=== PATIENT | female | born 1995 | race Asian ===

== ENCOUNTER 2017-03-08 13:47 | Emergency (ER) | payer OTHER ==
[~2017-03-08] VITALS: Ht 167.6 cm; Wt 78.2 kg
[~2017-03-08 13:47] MED LIST: ALL DAY ALLERGY10 M3 PO; AMITRIPTYLINE H10 MG PO; ATARAX,VISTARIL25 MG PO; AZITHROMYCIN250 MG1 PO; DICLOFENAC SODI75 MG PO; EPIPEN ADU0.3 MG/0.3 IM; EXCEDRIN EXTRA1 EACH PO; INDOCIN50 MG PO; NAPROXEN500 MG PO; ORTHO TRI-CY1 TABLE1 PO; PREDNISONE20 MG PO; TRAMADOL HCL50 MG PO; ZANTAC300 MG PO
[2017-03-08 15:59] VITALS: BP 120/70
== END 2017-03-08 16:00 | disposition home or self-care (01) ==
LOC: EME 13:47
DX: O26.891 Other specified pregnancy related conditions, first trimester (principal); G43.909 Migraine, unspecified, not intractable, without status migrainosus; Z3A.12 12 weeks gestation of pregnancy; O99.331 Smoking (tobacco) complicating pregnancy, first trimester
CPT/HCPCS: 99281; 99284

== ENCOUNTER 2017-03-31 00:09 | Emergency (ER) | payer OTHER ==
[~2017-03-31] VITALS: Ht 167.6 cm; Wt 81.2 kg
[2017-03-31 00:27] VITALS: BP 129/71
== END 2017-03-31 02:11 | disposition home or self-care (01) ==
LOC: EME 00:09
DX: O26.892 Other specified pregnancy related conditions, second trimester (principal); M54.31 Sciatica, right side; Z3A.15 15 weeks gestation of pregnancy
CPT/HCPCS: 99281; 99284

== ENCOUNTER 2017-04-20 02:06 | Emergency (ER) | payer OTHER ==
[~2017-04-20] VITALS: Ht 167.6 cm; Wt 81.5 kg
[2017-04-20 04:06] VITALS: BP 122/71
== END 2017-04-20 04:06 | disposition home or self-care (01) ==
LOC: EME 02:06
DX: O99.342 Other mental disorders complicating pregnancy, second trimester (principal); F41.0 Panic disorder [episodic paroxysmal anxiety]; F41.9 Anxiety disorder, unspecified; T43.506A Underdosing of unspecified antipsychotics and neuroleptics, initial encounter; Z91.128 Patient's intentional underdosing of medication regimen for other reason; Z3A.18 18 weeks gestation of pregnancy
CPT/HCPCS: 90839; 99281; 99284

== ENCOUNTER 2017-05-16 15:35 | Outpatient (CLI) | payer OTHER ==
[2017-05-16 15:53] VITALS: BP 127/61
== END 2017-05-16 16:40 | disposition home or self-care (01) ==
LOC: LDRP-OP → 2WEST 15:36 → LDRP-OP 10-18 13:21
DX: O36.8120 Decreased fetal movements, second trimester, not applicable or unspecified (principal); Z3A.22 22 weeks gestation of pregnancy
CPT/HCPCS: 59025; G0378

== ENCOUNTER 2017-05-25 02:06 | Emergency (ER) | payer OTHER ==
[~2017-05-25] VITALS: Ht 170.2 cm; Wt 85.8 kg
[2017-05-25 03:28] LABS: ADD MIUA? YES; BILIRUBIN NEGATIVE; BLOOD NEGATIVE; COLOR YELLOW ((YELLOW)); GLUCOSE (STRIP) 150; KETONES NEGATIVE; LEUKOCYTES LARGE; NITRITE POSITIVE; PROTEIN (STRIP) 30; SPECIFIC GRAVITY 1.015 (1.000-1.030); UROBILINOGEN 0.2 MG/DL (0.2-1.0)
[2017-05-25 03:35] LABS: HEMATOCRIT 32.3 % (36.0-46.0); MCH 29.8 PG (29.0-34.0); MCHC 33.7 G/DL (30.0-36.0); MCV 88.3 FL (83-99); PLATELET COUNT 223 K/uL (156-360); RBC DIS.WIDTH-CV 12.4 % (11.8-14.6); RBC DIS.WIDTH-SD 40.2 % (39-53); RED BLOOD COUNT 3.66 M/uL (3.80-5.20); WHITE BLOOD COUNT 12.8 K/uL (4.1-10.2)
[2017-05-25 03:58] LABS: MUCUS 1+ /LPF; RED BLOOD CELLS NONE SEEN /HPF (0-5); WHITE BLOOD CELLS 20-30 /HPF (0-5)
[2017-05-25 03:59] LABS: BACTERIA 3+ /HPF; EPITHELIAL CELLS 2+ /HPF; UCUL ADDED? YES
[2017-05-25 04:00] LABS: INTERNAL CONTROL VALID? YES; MONOSPOT (MONONUCLEOSIS SEROL) NEGATIVE
[2017-05-25 04:06] LABS: INFLUENZA A VIRAL ANTIGEN NEGATIVE; INFLUENZA B VIRAL ANTIGEN NEGATIVE
[2017-05-25 04:10] LABS: CHLORIDE 100 mEq/L (99-109); POTASSIUM 3.6 mEq/L (3.7-5.4); SODIUM 133 mEq/L (136-147)
[2017-05-25 04:12] LABS: GLUCOSE 96 mg/dL (70-99)
[2017-05-25 04:13] LABS: ANION GAP 11 MEQ/L (2-14)
[2017-05-25] MEDS ORDERED: MACROBID100 MG PO (04:13)
[2017-05-25 04:16] LABS: ALKALINE PHOSPHATASE 75 IU/L (3-129); GFR ESTIMATE (CALCULATED) > 59 mL/min/
[2017-05-25 04:17] LABS: UREA NITROGEN (BUN) 5 mg/dL (9-23)
[2017-05-25 04:19] LABS: LIPASE 24 U/L (1.0-51.0)
[2017-05-25 05:33] VITALS: BP 107/55
== END 2017-05-25 05:36 | disposition home or self-care (01) ==
LOC: EME 02:06
PROVIDERS: Emergency Medicine
DX: O23.12 Infections of bladder in pregnancy, second trimester (principal); R51 Headache; Z3A.24 24 weeks gestation of pregnancy
CPT/HCPCS: 80053; 81003; 83690; 85027; 86308; 87077; 87086; 87186; 87502; 87651 90; 99281; 99284

== ENCOUNTER 2017-08-13 00:02 | Emergency (ER) | payer OTHER ==
[~2017-08-13] VITALS: Ht 167.6 cm; Wt 92.2 kg
[~2017-08-13 00:02] MED LIST changes: +MACROBID100 MG PO
[2017-08-13 00:04] VITALS: BP 137/95
[2017-08-13] MEDS ORDERED: NORCO 5/3251 TABLET PO (01:53)
[2017-08-13] MEDS ORDERED: MEDROL DOSEPAK4 MG PO (01:53)
== END 2017-08-13 02:22 | disposition home or self-care (01) ==
LOC: EME 00:02
DX: O99.89 Other specified diseases and conditions complicating pregnancy, childbirth and the puerperium (principal); M54.41 Lumbago with sciatica, right side; Z3A.35 35 weeks gestation of pregnancy
CPT/HCPCS: 99281; 99284; J7512

== ENCOUNTER 2017-09-17 04:28 | Inpatient (IN) | payer OTHER ==
[~2017-09-17] VITALS: Ht 167.6 cm; Wt 92.5 kg
[2017-09-17] VITALS (49 sets, daily range): BP systolic 111–200; BP diastolic 57–109
[~2017-09-17 04:28] MED LIST changes: +MEDROL DOSEPAK4 MG PO; +NORCO 5/3251 TABLET PO
[2017-09-17] MEDS ORDERED: PRENATAL TABLE1 EAC3 PO (05:00)
[2017-09-17 06:19] LABS: EOSINOPHIL COUNT 0.1 K/uL (0-0.3); HEMATOCRIT 35.1 % (36.0-46.0); IMMATURE GRANULOCYTE (%) 0.5 % (0.0-0.7); INSTRUMENT ABS NEUTROPHIL CT 6.7 K/uL; LYMPHOCYTE COUNT 1.2 K/uL (1.0-2.8); MCH 26.9 PG (29.0-34.0); MCHC 31.9 G/DL (30.0-36.0); MCV 84.4 FL (83-99); MEAN PLAT.VOLUME 10.4 uM^3 (9.5-12.4); MONOCYTE (%) 7.9 % (3-12); MONOCYTE COUNT 0.7 K/uL (0-0.8); NEUTROPHIL (%) 76.5 % (45-76); NEUTROPHIL COUNT 6.7 K/uL (1.8-6.4); PLATELET COUNT 284 K/uL (156-360); RBC DIS.WIDTH-CV 13.4 % (11.8-14.6); RBC DIS.WIDTH-SD 41.2 % (39-53); RED BLOOD COUNT 4.16 M/uL (3.80-5.20); WHITE BLOOD COUNT 8.7 K/uL (4.1-10.2)
[2017-09-17 06:42] LABS: ALKALINE PHOSPHATASE 171 IU/L (3-129); ANION GAP 10 MEQ/L (2-14); CHLORIDE 100 MEQ/L (99-109); GFR ESTIMATE (CALCULATED) > 59 mL/min/; GLUCOSE 89 mg/dL (70-99); LACTATE DEHYDROGENASE 184 IU/L (20-246); POTASSIUM 4.6 MEQ/L (3.7-5.4); SAMPLE HEMOLYSIS CHECK 0; SAMPLE ICTERIC CHECK 0; SAMPLE LIPEMIA CHECK 0; SODIUM 134 MEQ/L (136-147); UREA NITROGEN (BUN) 7 mg/dL (9-23); URIC ACID 3.2 mg/dL (3.1-9.2)
[2017-09-17 07:56] LABS: UR CREATININE CONCENTRATION 65.4 MG/DL
[2017-09-18 06:44] LABS: BASOPHIL COUNT 0.1 K/uL (0-0.1); EOSINOPHIL (%) 0.4 % (0-5); EOSINOPHIL COUNT 0.1 K/uL (0-0.3); HEMATOCRIT 28.9 % (36.0-46.0); IMMATURE GRANULOCYTE (%) 0.5 % (0.0-0.7); IMMATURE GRANULOCYTE COUNT 0.1 K/uL; INSTRUMENT ABS NEUTROPHIL CT 9.8 K/uL; LYMPHOCYTE COUNT 1.6 K/uL (1.0-2.8); MCH 27.2 PG (29.0-34.0); MCHC 32.5 G/DL (30.0-36.0); MCV 83.5 FL (83-99); MEAN PLAT.VOLUME 10.8 uM^3 (9.5-12.4); MONOCYTE (%) 9.3 % (3-12); MONOCYTE COUNT 1.2 K/uL (0-0.8); NEUTROPHIL (%) 76.5 % (45-76); NEUTROPHIL COUNT 9.8 K/uL (1.8-6.4); PLATELET COUNT 233 K/uL (156-360); RBC DIS.WIDTH-CV 13.5 % (11.8-14.6); RBC DIS.WIDTH-SD 41.1 % (39-53); RED BLOOD COUNT 3.46 M/uL (3.80-5.20); WHITE BLOOD COUNT 12.7 K/uL (4.1-10.2)
[2017-09-18 08:00] VITALS: BP 127/57
[2017-09-18 15:00] VITALS: BP 145/83
[2017-09-18 22:51] VITALS: BP 127/67
[2017-09-19 07:39] VITALS: BP 116/64
[2017-09-19] MEDS ORDERED: Tylenol Extra Streng PO (10:28)
[2017-09-19] MEDS ORDERED: IBUPROFEN800 MG PO (10:28)
== END 2017-09-19 12:16 | disposition home or self-care (01) | DRG 775 ==
LOC: LDRP-OP 04:28 → 2WEST 04:29 → LDRP-OP 10-18 16:52
PROVIDERS: Advanced Practice Midwife
PROC: 00HU33Z Insertion of Infusion Device into Spinal Canal, Percutaneous Approach (ICD-10-PCS; principal; 2017-09-17)
PROC: 10E0XZZ Delivery of Products of Conception, External Approach (ICD-10-PCS; principal; 2017-09-17)
PROC: 0HQ9XZZ Repair Perineum Skin, External Approach (ICD-10-PCS; principal; 2017-09-17)
PROC: 3E0S3BZ Introduction of Anesthetic Agent into Epidural Space, Percutaneous Approach (ICD-10-PCS; principal; 2017-09-17)
DX: O70.0 First degree perineal laceration during delivery (principal); O99.03 Anemia complicating the puerperium; D62 Acute posthemorrhagic anemia; O99.824 Streptococcus B carrier state complicating childbirth; O62.2 Other uterine inertia; O69.1XX0 Labor and delivery complicated by cord around neck, with compression, not applicable or unspecified; O99.214 Obesity complicating childbirth; E66.3 Overweight; Z3A.40 40 weeks gestation of pregnancy; Z37.0 Single live birth; Z87.891 Personal history of nicotine dependence; Z87.440 Personal history of urinary (tract) infections
CPT/HCPCS: 80053; 82570; 83615; 84156; 84550; 85025; 86850; 86900; 86901; C1755; J0595; J2540; J7120; Q0169